=== PATIENT | female | born 1990 | race African-American/Black ===

== ENCOUNTER 2017-01-04 15:10 | Emergency (ER) | payer SELFPAY ==
[2017-01-04 15:21] VITALS: BP 169/92; BMI 51.3
--- NOTE | 2017-01-04 16:30 | DR.GENAD ---
HPI - PCP Primary Care Physician: SARAH BLACKWELL - Complaint/Symptoms Chief Complaint:: PT STATES SHE HAS HAD A MIRGRAINE FOR THE PAST THREE DAYS AND IT HAS BEEN CAUSING HER TO BLACK OUT. SHE WAS WALKING DOWN THE STAIRS TODAY AND SHE THINKS SHE PASSED OUT AND FELL DOWN STAIRS HITTING HER HEAD. PT IS UNSURE WHAT PART OF HEAD HIT STEPS WHEN SHE FELL. - Source History Provided: Patient - Mode of Arrival Mode of Arrival: Ambulatory - Timing Onset of Chief Complaint: 01/04/17 PMH - PMH Past Medical History: Yes Past Medical History: Migraines, Hypertension Past Surgical History: Yes Surgical History: - Family History History of Family Medical Conditions: Yes Family Medical History: Diabetes Mellitus, Cancer, Coronary Artery Disease, Hypertension - Social History Does patient currently use any type of tobacco product: Yes Have you used tobacco products in the last 12 months: Yes Type of Tobacco Use: Cigarettes How many years tobacco product used: 5 Does any household member use tobacco: No Alcohol Use: None Do you use any recreational Drugs:: No Lives With: Family Lives Where: Home - infectious screening In the last 2 months have you had wt loss of >10#?: NO Have you had fever, night sweats or hemotysis?: No Have you traveled outside the country in the last 6 months?: No Isolation: Standard ROS - Review of Systems Eyes: No Symptoms Reported ENTM: No Symptoms Reported Respiratoy: No Symptoms Reported Cardiovascular: No Symptoms Reported Gastrointestinal/Abdominal: No Symptoms Reported Genitourinary: No Symptoms Reported Neurological: Headache Musculoskeletal: No Symptoms Reported Integumentary: No Symptoms Reported Hematologic/Lymphatic: No Symptoms Reported Endocrine: No Symptoms Reported Psychiatric: No Symptoms Reported All Other Systems: Reviewed and Negative PE - Vital Signs Vitals: Pulse Rate 79 Respiratory Rate 20 Blood Pressure 169/92 O2 Sat by Pulse Oximetry 99 - General General Appearance: Alert, In No Apparent Distress - Head Head Exam: Atraumatic - Eyes Eye exam: Normal Appearance, PERRL, EOMI - ENT ENT Exam: Normal Exam External Ear Exam: Normal External Inspection TM/Canal Exam: Bilateral Normal Nose Exam: Normal Nose Exam Mouth Exam: Normal Inspection Throat Exam: Normal Inspection - Neck Neck Exam: Normal Inspection - Chest Chest Inspection: Normal Inspection - Respiratory Respiratory Exam: Normal Lung Sounds Bilat Respiratory Exam: Bilateral Clear to Auscultation - Abdominal Exam Abdominal Exam: Normal Inspection Abdominal Tenderness: negative: RUQ, RLQ, LUQ, LLQ, Epigastrium, Suprapubic, Diffuse, Mild, Moderate, Severe, Other - Extremities Extremities Exam: Normal Inspection - Back Back Exam: Normal Inspection, Full ROM - Neurologic Neurological Exam: Alert, Oriented X3, CN II-XII Intact - Psychiatric Psychiatric Exam: Normal Affect - Skin Skin Exam: Warm, Dry, Intact Course - Treatment Treatment: toradol 60mg IM - Reevaluation 1st: Improved - Diagnosis Discharge Problem: Headache Qualifiers: Headache type: unspecified Headache chronicity pattern: acute headache Intractability: not intractable Qualified Code(s): R51 - Headache - Discharge Plan Condition: Stable - Follow ups/Referrals Follow ups/Referrals: SARAH BLACKWELL [Primary Care Provider] - 3 days - Instructions
[2017-01-04] MEDS ORDERED: TORADOL 60 MG VIAL ONE (16:31)
[2017-01-04] MEDS ORDERED: TORADOL 60 MG VIAL IM ONE (16:31)
== END 2017-01-04 17:40 | disposition home or self-care (01) ==
LOC: ER 15:37
DX: R51 Headache (principal)
CPT/HCPCS: 96372; 99282; J1885